=== PATIENT | female | born 1970 | race Caucasian/White ===

== ENCOUNTER 2024-05-13 21:46 | Emergency (ER) | payer MEDICAID ==
[~2024-05-13] VITALS: Ht 157.5 cm; Wt 61.7 kg
[~2024-05-13 21:46] MED LIST: FERR325T23 PO
[2024-05-13 22:37] LABS: BASOPHILS % (AUTO) 0.3 % (0.0-2.0); EOSINOPHILS % (AUTO) 0.9 % (0.0-6.0); HEMATOCRIT 23 % (33-45); LYMPHOCYTES # (AUTO) 1.6 K/uL (0.8-4.8); LYMPHOCYTES % (AUTO) 33.8 % (20.0-44.0); MEAN CORPUSCULAR HEMOGLOBIN 18 PG (26.0-33.0); MEAN CORPUSCULAR HGB CONC 29 g/dl (31.0-36.0); MEAN CORPUSCULAR VOLUME 63 fL (82-100); MONOCYTES # (AUTO) 0.3 K/uL (0.1-1.30); NEUTROPHILS # (AUTO) 2.8 K/uL (1.8-8.9); PLATELET COUNT (AUTO) 313 K/uL (150-450); RED BLOOD CELL COUNT(AUTO) 3.67 MIL/uL (4.0-5.2); RED CELL DISTRIBUTION WIDTH 18.5 % (11.5-15.0); WHITE BLOOD COUNT (AUTO) 4.9 K/uL (4.3-11.0)
[2024-05-13 22:39] LABS: HEMOGLOBIN 6.7 g/dL (11.5-14.8)
[2024-05-13 22:43] LABS: BILIRUBIN,DIRECT 0.1 mg/dL (0.0-0.2); BILIRUBIN,TOTAL 0.3 mg/dL (0.2-1.0); CREATININE 0.6 mg/dL (0.6-1.3); INR 1.03 (0.91-1.10); PARTIAL THROMBOPLASTIN TIME 24.4 SEC (24.3-34.3); POTASSIUM 3.6 mmol/L (3.5-5.1); PROTHROMBIN TIME 10.9 SECS (9.2-11.1); TOTAL PROTEIN, SERUM 6.2 g/dL (6.4-8.2)
[2024-05-14 01:12] LABS: ANISOCYTOSIS 1+; BASOPHILS % (MANUAL) 0 % (0.0-2.0); EOSINOPHILS % (MANUAL) 0 % (0-4); HYPOCHROMASIA 1+; LYMPHOCYTES % (MANUAL) 29 % (16-48); MONOCYTES % (MANUAL) 9 % (0-11.0); NEUTROPHILS % (MANUAL) 62 (42-76); OVALOCYTES 1+; PLATELET ESTIMATE ADEQUATE
[2024-05-14 03:13] VITALS: TEMP 98.4
[2024-05-14 03:57] LABS: HEMOGLOBIN 8.1 g/dL (11.5-14.8)
[2024-05-14 04:39] VITALS: BP 113/67; O2SAT 99
== END 2024-05-14 04:51 | disposition home or self-care (01) ==
LOC: ER 21:53
DX: D64.9 Anemia, unspecified (principal)
CPT/HCPCS: 99285; 93005; 85025; 80048; 80076; 85007; 36415 ×2; 85730; 86850; 86923; 36430; 85027; J7040; P9016